=== PATIENT | female | born 1970 | race Caucasian/White ===

== ENCOUNTER 2020-01-09 07:52 | Outpatient (CLI) | payer BC, OTHER ==
[2020-01-09 16:09] LABS: #Basophils 0.1 thou/uL (0.0-0.2); #Eosinphils 0.2 thou/uL (0.0-0.7); #Lymphocytes 2.8 thou/uL (1.20-3.40); #Monocytes 0.4 thou/uL (0.11-0.59); #Neutrophils 5.7 thou/uL (1.40-6.50); %Basophils 0.5 % (0.0-1.0); %Eosinophils 2.3 % (0.0-10.0); %Lymphocytes 31.1 % (21.0-51.0); %Neutrophils 62.1 % (42.0-75.0); Hemoglobin 13.5 g/dL (12.0-16.0); Mean Corpuscular HGB CONC 33.4 g/dL (32.0-36.0); Mean Corpuscular Hemoglobin 31.5 pg (27.0-31.0); Mean Corpuscular Volume 94.4 fL (78.0-98.0); Mean Platelet Volume 8.7 fL (7.4-10.4); Platelet Count 218 thou/uL (130-400); RBC Distribution Width 11.6 % (11.5-14.5); White Blood Cell (WBC) Count 9.1 thou/uL (4.8-10.8)
[2020-01-10 11:00] LABS: SARS-CoV-2 MS2 Positive; SARS-CoV-2 N Gene Negative; SARS-CoV-2 S Gene Negative; SARS-CoV-2 by NAA Not Detected (NotDetected); SARS-CoV-2 orf1ab Negative
== END 2020-01-09 07:53 | disposition home or self-care (01) ==
LOC: LABBT 07:52
PROVIDERS: ATTEND Student in an Organized Health Care Education/Training Program
DX: Z01.812 Encounter for preprocedural laboratory examination (principal); Z20.828 Contact with and (suspected) exposure to other viral communicable diseases; N85.01 Benign endometrial hyperplasia; R10.2 Pelvic and perineal pain
CPT/HCPCS: 84702; 85025; 87635; U0003

== ENCOUNTER 2020-01-13 05:59 | Day surgery (SDC) | payer BC ==
[2020-01-10 11:08] VITALS: BMI 31.1
[2020-01-13] MEDS ORDERED: HYDROmorphone 0.5 MG/0.5 ML SYRINGE ONE ×2 (06:12→08:28)
[2020-01-13] MEDS ORDERED: Midazolam HCl 2 mg/2 ml Vial ONE ×2 (06:12→06:55)
[2020-01-13] MEDS ORDERED: Lidocaine 2% Jelly 5 ML TUBE ONE (06:12)
[2020-01-13] MEDS ORDERED: Fentanyl 100 MCG/2 ML VIAL ONE (06:12)
[2020-01-13] MEDS ORDERED: Famotidine/PF 20 mg/2ml Vial ONE (06:23)
[2020-01-13] MEDS ORDERED: CeleCOXIB 100 MG CAP ONE (06:23)
[2020-01-13] MEDS ORDERED: Gabapentin 300 MG CAP ONE (06:23)
[2020-01-13] MEDS ORDERED: Bupivacaine PF 0.5% 30 ML VIAL ONE (06:50)
[2020-01-13] MEDS ORDERED: EPINEPHrine 1 MG/ML AMP ONE (06:50)
[2020-01-13] MEDS ORDERED: Lidocaine 2% w/Epinephrine 1:200K 20 ML VIAL ONE (06:52)
[2020-01-13] MEDS ORDERED: Lidocaine 1% w/Epinephrine 1:100K 20 ML VIAL ONE (06:53)
[2020-01-13] MEDS ORDERED: Promethazine HCl 25 MG/ML VIAL SLOW IVP PRN (08:00)
[2020-01-13] MEDS ORDERED: Promethazine HCl 25 MG/ML VIAL IM PRN (08:00)
[2020-01-13] MEDS ORDERED: Ondansetron HCl/PF 4 MG/2 ML Vial IVP PRN (08:00)
[2020-01-13] MEDS ORDERED: Meperidine HCl/PF 25 MG/ML VIAL SLOW IVP PRN (08:00)
[2020-01-13] MEDS ORDERED: HYDROmorphone 2 MG/ML VIAL SLOW IVP PRN (08:00)
[2020-01-13] MEDS ORDERED: Ketorolac Tromethamine 30 MG/ML VIAL IVP PRN (08:00)
[2020-01-13] MEDS ORDERED: Dexamethasone 20 MG/5 ML VIAL ONE (09:46)
[2020-01-13] MEDS ORDERED: Lidocaine 1% PF 5 ML VIAL ONE (09:46)
[2020-01-13] MEDS ORDERED: Glycopyrrolate 0.2 MG/ML 5 ML SYRINGE ONE (09:46)
[2020-01-13] MEDS ORDERED: Rocuronium Bromide 10 MG/ML (10ML VIAL) ONE (09:46)
[2020-01-13] MEDS ORDERED: Ondansetron PF 4 MG/2 ML Vial ONE (09:46)
[2020-01-13] MEDS ORDERED: PROPOFOL 200 MG/20 ML VIAL ONE (09:46)
[2020-01-13] MEDS ORDERED: Ondansetron ODT 4 MG TAB ONE (14:09)
--- NOTE | 2020-01-14 12:49 | OP ---
DATE OF PROCEDURE: 01/13/2020 PREOPERATIVE DIAGNOSES: 1. Pelvic pain. 2. Abnormal uterine bleeding. 3. 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 POSTOPERATIVE DIAGNOSES: 1. Pelvic pain. 2. Abnormal uterine bleeding. 3. 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 PROCEDURES PERFORMED: Robotic assisted total laparoscopic hysterectomy and bilateral salpingectomy. ANESTHESIA: General endotracheal. ZYGLO TECHNICIAN SURGEON: Lilia Levin MD COMPLICATIONS: None. DRAINS: Viera catheter. PATHOLOGY: Uterus, cervix, bilateral fallopian tubes. ESTIMATED BLOOD LOSS: 50 mL. IVF: 1500 mL of crystalloid. URINE OUTPUT: 300 mL clear urine. FINDINGS: A 10-week size uterus, some subserosal fibroids. Normal-appearing cervix. Normal ovaries and fallopian tubes bilaterally. Small superficial vaginal laceration on the left sidewall identified at the conclusion of the case that was reapproximated. No bladder injury on back filling, and excellent hemostasis. Tisseel was placed. DESCRIPTION OF PROCEDURE: The patient was taken to the operating room, where general anesthesia was obtained without difficulty. The patient was prepped and draped in a sterile fashion in the dorsal lithotomy position. Viera catheter was placed in the bladder. A speculum was placed in the vagina. The anterior lip of the cervix was grasped with a single-tooth tenaculum. The uterus was then sounded to 11 cm and the cervix was progressively dilated with Yasir dilators. The JV manipulator was assembled with a 10 cm tip and a 3.5 cm colpotomizer ring. The JV manipulator was inserted into the uterine fundus. Balloons were inflated. The speculum and tenaculum were removed out of the vagina. Legs were placed in low lithotomy. Attention was turned to the abdomen. A mixture of 0.5% Marcaine plain and 1% lidocaine with epinephrine was infiltrated into the umbilicus, and a 12 mm skin incision was made on the superior aspect of the umbilicus. A Veress needle was then inserted into the abdomen several times due to elevated opening pressures and finally at third time with an opening pressure of 4 mmHg, pneumoperitoneum was obtained without difficulty. The Veress needle was removed and a 12 mm trocar was advanced into the abdomen and confirmed placement with robotic camera. Steep Trendelenburg was obtained. Right and left lower quadrant 8 mm robotic trocars were placed under direct visualization after infiltrating with anesthetic mixture. Right upper quadrant 11 mm port was also placed under direct visualization after infiltrating with anesthetic solution. The robot was then docked. The right robotic arm contained monopolar scissor. Left robotic arm contained a fenestrated bipolar. There were some adhesions of the lower uterine segment to the bladder due to the patient's previous . The surgeon console then took control. The right fallopian tube was grasped and elevated. The mesosalpinx was sequentially cauterized with the fenestrated, incised with the scissors until the proximal portion of the fallopian tube was met. The fallopian tube was then clamped across the fenestrated and incised with scissors. The utero-ovarian was cauterized x2 with the fenestrated and incised in the midportion with the scissors and this was carried down with cautery and incision to the level of the round ligament in the midportion. The midportion was cauterized and then incised. The posterior leaf of the broad ligament was then incised with the scissors down to the level of the uterosacral ligament. The ureter was identified running in the pelvic sidewall and the retroperitoneum was then dissected off the uterine vessels. The anterior leaf of the broad ligament was also incised using the fenestrated, undermined to ensure clear window. Attention was then turned to the left side, where the left fallopian tube was grasped and elevated. The mesosalpinx was cauterized from lateral to medial with the fenestrated and then incised with scissors. The utero-ovarian was cauterized x2 and incised in the midportion. The midportion of the round ligament was also cauterized and incised. These two incisions were met with the combination of cautery, followed by incision on cautery. The posterior leaf of the broad ligament was incised down to the uterosacral ligament, that ureter on that pelvic sidewall was easily identifiable in the retroperitoneum after that incision. This was very lateral to the uterine vessels where it crossed underneath the uterine artery. The retroperitoneum was then dissected off the uterine vessels. The vessels were adequately skeletonized. The anterior leaf of the broad ligament was then incised with scissors down to the level of bladder flap. The bladder flap was then undertaken. The clear areas in the bladder flap were incised with the scissors on cautery. A window was tried to be made underneath the adhesion of the bladder to the lower uterine segment, where the pubocervical fascia was, and this was slightly successful. The bladder was then backfilled to notate the limitations of the bladder mucosa, which was very close to where it was adherent to the lower uterine segment. The bladder was then carefully layered out from lateral to medial after making more of a window underneath almost completely all the way across where the adhesions were. This took approximately 20 minutes, and during this process, the bladder was backfilled multiple times to ensure no injury and to see how much more dissection was necessary. That scar was oozy. This was cauterized with the fenestrated. Once the bladder had been completely taken down, the pubocervical was scored upon and the adventitia of the bladder was dissected bluntly down below the level of the colpotomizer ring. The vessels were then cauterized bilaterally with the fenestrated multiple times. The pedicles were then incised with the scissors and then just medial to the pedicle was also incised superficially to allow that pedicle to remain elevated out of the pelvis and more lateral to the vaginal cuff edges. Colpotomy was then performed circumferentially. Once the uterus had been completely transected, the uterus was brought into the vagina. This was slightly difficult as the patient had a very small vaginal opening due to her not having any vaginal deliveries and it did require some manipulation with Jonatan clamps and a lot of pulling and tugging. Once this had been performed, the vaginal occluder balloon was placed into the vagina as a means to maintain pneumoperitoneum. The pelvis was copiously irrigated and suctioned, and hemostasis was achieved of the oozing vaginal edges with the fenestrated. The scissors were traded out for the needle spike driver, and the vaginal cuff was repaired with 2-0 Stratafix suture in a running fashion and then ran back for a second layer. The ureters were then noted in the pelvic sidewall vermiculating and well away from the vaginal cuff apices. Irrigation was performed of the pelvis and low pressure check was performed. Hemostasis was noted to be excellent. Tisseel was placed over the raw bladder areas and the vaginal cuff as well as the pedicles laterally and pelvic sidewall. All instruments were removed from the abdomen. Pneumoperitoneum was released. The robot was undocked. The fascia of the camera port was repaired with 0 Vicryl in a [id number] fashion. The skin was closed with 4-0 Monocryl in a subcuticular fashion. Dermabond was applied. Attention was turned to the vagina. There was some bleeding noted at the vaginal opening. The speculum was placed and a very superficial, approximately 3 cm laceration was noted on the left sidewall. This was repaired with 1-0 chromic in a running locking fashion with excellent hemostasis noted. The vaginal cuff had excellent closure. No further injury was noted in the vagina. All instruments were removed from the vagina. The patient tolerated the procedure well. Sponge, lap, and needle counts were correct x2. The patient was taken to recovery room in stable condition. The patient received Ancef 2 g prior to the procedure. Job ID: [id number]
== END 2020-01-13 14:15 | disposition home or self-care (01) ==
LOC: SDC 05:59
PROVIDERS: ATTEND Student in an Organized Health Care Education/Training Program
PROC: 0UT94ZZ Resection of Uterus, Percutaneous Endoscopic Approach (ICD-10-PCS; principal; 2020-01-13)
PROC: 0UT74ZZ Resection of Bilateral Fallopian Tubes, Percutaneous Endoscopic Approach (ICD-10-PCS; principal; 2020-01-13)
DX: N72 Inflammatory disease of cervix uteri (principal); N84.0 Polyp of corpus uteri; N80.0 Endometriosis of uterus; D25.2 Subserosal leiomyoma of uterus; N83.8 Other noninflammatory disorders of ovary, fallopian tube and broad ligament; E55.9 Vitamin D deficiency, unspecified; Z87.891 Personal history of nicotine dependence; Z79.899 Other long term (current) drug therapy; Z91.040 Latex allergy status
CPT/HCPCS: 86850; 86900; 86901; 88307; J0171; J0690; J1100; J1170; J2250; J2405; J2704; J3010; Q0162; S0020; S0028

== ENCOUNTER 2024-10-23 15:31 | Outpatient (CLI) | payer BC | END 2024-10-23 15:32 | disposition home or self-care (01) | LOC: BICMAMMO 15:31 | PROVIDERS: ATTEND Family Medicine | DX: Z12.31 Encounter for screening mammogram for malignant neoplasm of breast (principal) | CPT/HCPCS: 77063; 77067 ==